=== PATIENT | female | born 1940 | race Caucasian/White ===

== ENCOUNTER → 2017-11-21 13:02 | Outpatient (CLI) | payer MEDICARE, OTHER, SELFPAY ==
--- NOTE | 2017-11-21 | DI.US.S_ITS ---
ULTRASOUND GUIDED BIOPSY RIGHT BREAST USING VACUUM DEVICE WITH MARKING DEVICE INSERTED AND POST DIGITAL MAMMOGRAPHIC AND ULTRASOUND IMAGIN11/21/2017 CLINICAL: Right breast mass. PATIENT CONSENT: Risks (minor bleeding, infection, vasovagal reaction and repeat procedure), benefits and alternatives were explained to the patient and written informed consent was obtained. Correlation is made to exams dated: 10/30/2017 ultrasound, 10/30/2017 mammogram, and 05/03/2010 mammogram - [facility]. An ultrasound guided biopsy using real-time ultrasound was performed for the 4 cm lobulated solid mass located in the right breast at 10 o'clock middle depth. The skin was prepped in the usual manner. Local anesthetic was administered to the access site. A skin ines was made in the breast. The abnormality was approached from the caudocranial aspect. A 13 gauge biopsy needle was placed adjacent to the abnormality under ultrasound guidance. Once the needle was documented to be in the correct location, six specimens were obtained using the Mammotome biopsy system. The patient received additional local anesthetic during the procedure. A titanium clip was inserted into the biopsy cavity. Post procedure digital mammographic and ultrasound imaging demonstrates the clip at the targeted area. The specimens were sent to the laboratory for pathological analysis. IMPRESSION: ULTRASOUND GUIDED BIOPSY MALIGNANT Ultrasound guided biopsy of the 4 cm solid mass in the right breast at 10 o'clock middle depth was successful. Pathology indicates malignant invasive ductal carcinoma (ID). Pathology results are concordant with imaging findings. The department of radiology will confirm receipt of results with the office of Dr. Sanchez. This exam was interpreted at Station ID: [id number]. Umer washington,cj/:11/30/2017 12:16:02
--- NOTE | 2017-11-21 | DI.MG.S_ITS ---
UNILATERAL RIGHT DIGITAL DIAGNOSTIC MAMMOGRAM POST-NEEDLE BIOPSY: 11/21/2017 CLINICAL: Post clip placement. Comparison is made to exams dated: 10/30/2017 mammogram, 05/03/2010 mammogram, and 08/05/2008 mammogram - [facility]. The tissue of the right breast is predominantly fatty. There is a marker clip in the appropriate position in the right breast at 10 o'clock posterior depth. This marker clip placement is at biopsy site. This correlates with the prior exam. IMPRESSION: POST PROCEDURE MAMMOGRAM FOR MARKER PLACEMENT There was a successful marker clip placement in the right breast posterior depth. This exam was interpreted at Station ID: [id number]. NOTE: For mammograms, a report in lay terms will be sent to the patient. Approximately 15% of breast malignancies will not be visualized mammographically. In the management of a palpable breast mass, a negative mammogram must not discourage biopsy of a clinically suspicious lesion. Electronically Signed By: Umer washington/:11/21/2017 14:32:37 ACR BI-RADS Category Post-procedure mammogram for marker placement
--- NOTE | 2017-11-21 | PATH_ITS ---
[facility] Accession Number: [id number] . 01 Material submitted: . LEFT BREAST MASS 10 O'CLOCK . 02 Diagnosis: Left Breast Needle Core Biopsy, 10 o'clock: Invasive ductal carcinoma with the following features: 1. [place] grade 3 of 3 (score 9 of 9), nuclear score 3 of 3, tubular score 3 of 3, mitotic rate score 3 of 3. 2. Greatest linear extent of tumor: 1.1 cm as measured on the slide with all tissue cores involved with tumor. 3. Ductal carcinoma in situ: No identified. 4. Microcalcifications: Focally present. 5. Lymph-vascular invasion: Not identified. 6. Prognostic markers: Will be performed and the results will be reported in an addendum. MRV/11/26/2017 . 02 Electronically signed: . Jaylen Carson MD, Pathologist NPI- [id number] . 01 Gross description: . The specimen is received in a container of formalin labeled with the patient's name and designated right breast core biopsy mass 10 o'clock. The specimen consists of multiple 1.8-1.5 cm yellow-smith fibrous fatty needle core biopsies. Entirely submitted in cassette A1. Placed in formalin 1405 hours. Fixation time less than 48 hours. ([id number]) /[facility] . 02 Pathologist provided ICD-10: C50.412 . 02 CPT . 876976, [id number], [id number], [id number] Performed at: 01 [facility] [address] [facility], [place], [place] [id number] MD Alexandr Syed MD Phone: [phone] Performed at: 02 [facility] [address] [place] [id number] MD Rush Narayan MD Phone: [phone]
== END ==
PROVIDERS: PCP Family Medicine; Visit Provider Family Medicine
DX: R92.8 Other abnormal and inconclusive findings on diagnostic imaging of breast (principal); N63.10 Unspecified lump in the right breast, unspecified quadrant
CPT/HCPCS: 19083; 77065; 88305; 88360

== ENCOUNTER → 2017-12-19 14:25 | Oncology outpatient (ONC) | payer MEDICARE, OTHER, SELFPAY | LOC: ONC 14:35 | PROVIDERS: PCP Family Medicine; Visit Provider Internal Medicine Hematology & Oncology | DX: C50.919 Malignant neoplasm of unspecified site of unspecified female breast (principal); Z53.9 Procedure and treatment not carried out, unspecified reason ==